=== PATIENT | female | born 1975 | race African-American/Black ===

== ENCOUNTER 2021-01-01 09:53 | Observation (INO) ==
[2021-01-01] MEDS ORDERED: GLUCAGON 1 MG VIAL IM PRN (11:24)
[2021-01-01] MEDS ORDERED: DOCUSATE SODIUM 100 MG CAPSULE PO PRN (11:24)
[2021-01-01] MEDS ORDERED: ONDANSETRON 4 MG/2 ML VIAL IV PRN (11:24)
[2021-01-01] MEDS ORDERED: DEXTROSE 50% 25 GM/50 ML VIAL IV PRN (11:24)
[2021-01-01] MEDS ORDERED: hydrALAZINE 20 MG/1 ML VIAL IV PRN (11:24)
[2021-01-01] MEDS ORDERED: INSULIN LISPRO 100 UNIT/ML SUBCUT SCH (11:30)
[2021-01-01 11:58] LABS: Basophils % 0.2 % (0.0-0.8); Hematocrit 32.2 VOL% (35.7-47.0); Immature Granulocytes % 4.5 %; Immature Granulocytes Absolute 0.64 #; Lymphocytes # 2.2 10*3/uL (1.4-4.0); Lymphocytes % 15.5 % (21.3-54.2); Mean Corpuscular HGB Conc 31.1 GM/DL (32-36); Mean Platelet Volume 9.5 FL (9.6-12.0); Monocytes % 7.7 % (1.7-12.7); NRBC # 0.02 10*3/uL; Neutrophils % 72.1 % (38.7-73.9); Platelet Count 315 T/CUMM (130-400); Red Blood Count 3.32 MC/CUMM (3.8-5.5); Red Cell Distribution Width 18.3 % (9.3-17.3); White Blood Count 14.2 T/CUMM (4-12)
[2021-01-01 12:18] LABS: Albumin 3.6 G/DL (3.4-5.0); Bilirubin,Total 0.6 MG/DL (0.2-1.0); Calcium 9.7 MG/DL (8.5-10.1); Osmolality,Calculated 267.1 MOS/KG (273-304); Potassium 3.7 MMOL/L (3.5-5.1); Total Protein 8.4 G/DL (5.0-7.5)
[2021-01-01 12:26] LABS: Atypical Lymphocytes Few; Band Neutrophils 3 % (0-10); Lymphocytes 26 % (20-55); Segmented Neutrophils 71 % (50-85); Total Cells Counted 100
[2021-01-01 12:28] LABS: Anisocytosis Slight; Macrocytosis Slight; Platelet Estimate Normal
[2021-01-01] MEDS: ENOXAPARIN 40 MG/0.4 ML SYRINGE SUBCUT SCH (12:31)
[2021-01-01] MEDS ORDERED: traMADol 50 MG TABLET PO PRN (13:50)
[2021-01-01] MEDS: PIPERACILLIN/TAZOBACTAM 3,375 MG in SODIUM CHLORIDE 0.9% 100 ML IV SCH ×2 (16:30→23:16)
[2021-01-01] MEDS: SODIUM CHLORIDE 0.9% 1,000 ML IV SCH (16:30)
[2021-01-02 05:39] LABS: Basophils % 0.3 % (0.0-0.8); Hematocrit 32.4 VOL% (35.7-47.0); Hemoglobin 9.9 GM/DL (12.0-16.0); Immature Granulocytes Absolute 0.32 #; Lymphocytes # 1.6 10*3/uL (1.4-4.0); Lymphocytes % 15.1 % (21.3-54.2); Mean Corpuscular HGB Conc 30.6 GM/DL (32-36); Mean Corpuscular Volume 98.2 FL (87-102); Mean Platelet Volume 9.4 FL (9.6-12.0); Monocytes % 7.1 % (1.7-12.7); Neutrophils % 74.5 % (38.7-73.9); Platelet Count 329 T/CUMM (130-400); Red Cell Distribution Width 18.5 % (9.3-17.3); White Blood Count 10.7 T/CUMM (4-12)
[2021-01-02 06:07] LABS: Albumin 3.3 G/DL (3.4-5.0); Bilirubin,Total 0.8 MG/DL (0.2-1.0); Calcium 9.7 MG/DL (8.5-10.1); Osmolality,Calculated 268.1 MOS/KG (273-304); Potassium 3.9 MMOL/L (3.5-5.1); Total Protein 7.7 G/DL (5.0-7.5)
[2021-01-02 07:13] LABS: Band Neutrophils 3 % (0-10); Hypochromasia 1+; Lymphocytes 17 % (20-55); Metamyelocytes 1 %; Microcytosis 1+; Myelocytes 1 %; Segmented Neutrophils 76 % (50-85); Total Cells Counted 100
[2021-01-02 07:14] LABS: Ovalocytes Slight; Platelet Estimate Normal
[2021-01-02] MEDS: PIPERACILLIN/TAZOBACTAM 3,375 MG in SODIUM CHLORIDE 0.9% 100 ML IV SCH ×2 (08:23→15:33)
[2021-01-02] MEDS: hydroCHLOROthiazide 12.5 MG CAPSULE PO SCH (08:26)
[2021-01-02] MEDS: PANTOPRAZOLE 40 MG TABLET PO SCH (08:26)
[2021-01-02] MEDS: amLODIPine 5 MG TABLET PO SCH (08:26)
[2021-01-02] MEDS: ENOXAPARIN 40 MG/0.4 ML SYRINGE SUBCUT SCH (11:23)
[2021-01-02] MEDS ORDERED: SKIN HEALING OINT (AQUAPHOR) 50 GM TUBE TOP PRN (13:02)
[2021-01-02] MEDS: VITAMIN A & D OINT 113 GM TUBE TOP PRN (17:05)
[2021-01-02] MEDS: SODIUM CHLORIDE 0.9% 1,000 ML IV SCH ×2 (22:31→22:32)
[2021-01-03] MEDS: PIPERACILLIN/TAZOBACTAM 3,375 MG in SODIUM CHLORIDE 0.9% 100 ML IV SCH (05:13)
[2021-01-03] MEDS: hydroCHLOROthiazide 12.5 MG CAPSULE PO SCH (09:16)
[2021-01-03] MEDS: PANTOPRAZOLE 40 MG TABLET PO SCH (09:17)
[2021-01-03] MEDS: amLODIPine 5 MG TABLET PO SCH (09:17)
[2021-01-03] MEDS: VITAMIN A & D OINT 113 GM TUBE TOP PRN (09:22)
[2021-01-03 11:33] VITALS: BP 141/96
== END 2021-01-03 13:20 | disposition home or self-care (01) ==
LOC: N.4E → SUATTDRO 10:12 → N.4E 20:32
PROVIDERS: ADMIT Internal Medicine Hematology & Oncology; ATTEND Internal Medicine